=== PATIENT | male | born 2000 | race Caucasian/White ===

== ENCOUNTER 2019-03-11 00:35 | Emergency (ER) | payer BC ==
[~2019-03-11] VITALS: Ht 172.7 cm; Wt 65.8 kg
[2019-03-11] MEDS ORDERED: diphenhydrAMINE HCL 50 MG/ML VIAL ONE (00:59)
[2019-03-11] MEDS ORDERED: DEXAMETHASONE SOD PHOSPHATE 10 MG/ML VIAL ONE (00:59)
[2019-03-11] MEDS ORDERED: FAMOTIDINE (20 MG) 20 MG TABLET ONE (00:59)
[2019-03-11] MEDS: FAMOTIDINE (20 MG) 20 MG TABLET PO ONE (01:06)
[2019-03-11] MEDS: DEXAMETHASONE SOD PHOSPHATE 4 MG/ML VIAL IM ONE (01:06)
[2019-03-11] MEDS: diphenhydrAMINE HCL 50 MG/ML VIAL IM ONE (01:06)
[2019-03-11 02:03] VITALS: BP 128/78
== END 2019-03-11 02:03 | disposition home or self-care (01) ==
LOC: ER 00:40
DX: T78.40XA Allergy, unspecified, initial encounter (principal); X58.XXXA Exposure to other specified factors, initial encounter
CPT/HCPCS: 96372 ×2; 99283; J1100; J1200